=== PATIENT | female | born 1995 | race Caucasian/White ===

== ENCOUNTER 2018-06-27 01:06 | Emergency (ER) | payer MEDICAID ==
[~2018-06-27] VITALS: Ht 152.4 cm; Wt 46.4 kg
[2018-06-27 01:51] VITALS: BP 114/72
[2018-06-27] MEDS ORDERED: BACITRACIN 0.9 GM PACKET OINTMENT TP ONE (03:15)
[2018-06-27] MEDS ORDERED: PERTUSS(ACELL),DIPH,TET VAC/PF 0.5 ML VIAL IM ONE (03:15)
== END 2018-06-27 04:28 | disposition home or self-care (01) ==
LOC: EMS 01:06
DX: T22.611A Corrosion of second degree of right forearm, initial encounter (principal); T65.891A Toxic effect of other specified substances, accidental (unintentional), initial encounter; T32.0 Corrosions involving less than 10% of body surface; Y93.89 Activity, other specified; Y92.89 Other specified places as the place of occurrence of the external cause; Y99.8 Other external cause status
CPT/HCPCS: 16000; 16020; 90471; 90715